=== PATIENT | female | born 1995 | race African-American/Black ===

== ENCOUNTER 2021-12-11 12:15 | Emergency (ER) | payer BC ==
[2021-12-11 13:52] LABS: BLOOD UREA NITROGEN,BUN 6 mg/dL (7.0-18.0); CARBON DIOXIDE,CO2 25.8 mmol/L (21.0-32.0); CHLORIDE,CL 101 mmol/L (98-107); GLUCOSE RANDOM 91 mg/dL (74-106); LIPASE 30 U/L (73-393); SODIUM,NA 137 mmol/L (136-145)
== END 2021-12-11 14:53 | disposition home or self-care (01) ==
LOC: MW.ED 12:15
DX: O99.891 Other specified diseases and conditions complicating pregnancy (principal); R10.9 Unspecified abdominal pain; Z3A.09 9 weeks gestation of pregnancy
CPT/HCPCS: 36415; 76801; 76801-26; 80053; 81003; 83690; 84702; 85025; 86900; 86901; 99283; 99284-25

== ENCOUNTER 2021-12-23 08:32 | Emergency (ER) | payer BC ==
[2021-12-23 10:25] LABS: BLOOD UREA NITROGEN,BUN 6 mg/dL (7.0-18.0); CARBON DIOXIDE,CO2 23.9 mmol/L (21.0-32.0); CHLORIDE,CL 100 mmol/L (98-107); GLUCOSE RANDOM 85 mg/dL (74-106); POTASSIUM,K 3.7 mmol/L (3.5-5.1); SODIUM,NA 136 mmol/L (136-145)
== END 2021-12-23 10:55 | disposition home or self-care (01) ==
LOC: MW.ED 08:32
DX: O41.8X10 Other specified disorders of amniotic fluid and membranes, first trimester, not applicable or unspecified (principal); O20.9 Hemorrhage in early pregnancy, unspecified; Z3A.11 11 weeks gestation of pregnancy
CPT/HCPCS: 36415; 76801; 76801-26; 80053; 81001; 84702; 85025; 86900; 86901; 99284; 99284-25